=== PATIENT | female | born 1985 | race Caucasian/White ===

== ENCOUNTER 2017-09-27 11:07 | Emergency (ER) | payer BC ==
[~2017-09-27] VITALS: Ht 162.6 cm; Wt 65.0 kg
[2017-09-27 11:12] VITALS: BP 143/69; PULSE 97; RESP 16; TEMP 97.9; O2SAT 96
[2017-09-27] MEDS ORDERED: ORPHENADRINE INJ 60 MG/2 ML AMP IM ONE (12:00)
[2017-09-27] MEDS ORDERED: predniSONE 50 MG TAB PO ONE (12:00)
[2017-09-27] MEDS ORDERED: KETOROLAC TROMETHAMINE 60 MG/2 ML (IM) VIAL IM ONE (12:00)
--- NOTE | 2017-09-27 12:09 | PD ---
HPI Chief Complaint: Musculoskeletal Complaint Time Seen by Provider: 11:57 Travel History International Travel<30 days: No Contact w/Intl Traveler<30days: No Traveled to known affect area: No History of Present Illness HPI 32-year-old female presents to emergency department complaining of severe sciatic pain to the left leg. States that the pain started in her neck but has since traveled down to her lower back and hip region. Patient describes her pain as a constant dull pain that radiates down her leg to her foot. Patient has taken hydrocodone, ibuprofen, Flexeril without significant relief. Denies fever, chills, recent trauma, loss of bowel or bladder function, saddle anesthesia, personal history of cancer. Patient's concerned that she has had sciatica pain before but states that this different and more intense. 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 Dilation and Curettage (D&C): Yes Past Surgical History Genitourinary Surgery: Yes (KIDNEY STENTS) Social History Alcohol Use: No Tobacco Use: No Substance Use: No Allergies-Medications (Allergen,Severity, Reaction): Coded Allergies: No Known Allergies (Unverified , 09/27/17) Reported Meds & Prescriptions Reported Meds & Active Scripts Active Medrol Dosepak (Methylprednisolone) 4 Mg Dspk 4 Mg PO DIRECTED Per Pharmacist direction Review of Systems Except as stated in HPI: all other systems reviewed are Neg Physical Exam Narrative GENERAL: Well-developed well-nourished in mild distress SKIN: Focused skin assessment warm/dry. No ecchymosis. HEAD: Atraumatic. Normocephalic. EYES: Pupils equal and round. No scleral icterus. No injection or drainage. ENT: No nasal bleeding or discharge. Mucous membranes pink and moist. NECK: Trachea midline. No JVD. No midline tenderness CARDIOVASCULAR: Regular rate and rhythm. No murmur appreciated. RESPIRATORY: No accessory muscle use. Clear to auscultation. Breath sounds equal bilaterally. MUSCULOSKELETAL: No obvious deformities. No clubbing. No cyanosis. No edema. Significant paraspinous muscle spasms lower lumbar region. Mild TTP to bilateral gluteus BACK: No CVA tenderness. No rash. Mild point tenderness on palpation of the lower lumber/ sacrum spine. NEUROLOGICAL: Awake and alert. No obvious cranial nerve deficits. Motor grossly within normal limits. Normal speech. PSYCHIATRIC: Appropriate mood and affect; insight and judgment normal. Data Data Last Documented VS Vital Signs Date Time Temp Pulse Resp B/P (MAP) Pulse Ox O2 Delivery O2 Flow Rate FiO2 09/27/17 11:12 97.9 97 16 143/69 (93) 96 Orders Orders Spine, Lumbar Comp W/Obliq (09/27/17 ) Prednisone (Deltasone) (09/27/17 12:00) Ketorolac Inj (Toradol Inj) (09/27/17 12:00) Orphenadrine Inj (Norflex Inj) (09/27/17 12:00) Ed Discharge Order (09/27/17 13:15) MDM Medical Decision Making Medical Screen Exam Complete: Yes Emergency Medical Condition: Yes Differential Diagnosis Muscle spasms, sciatica, lumbar radiculopathy Narrative Course 32-year-old female presents to emergency department complaining of severe sciatic pain to the left leg. States that the pain started in her neck but has since traveled down to her lower back and hip region. Patient describes her pain as a constant dull pain that radiates down her leg to her foot. Patient has taken hydrocodone, ibuprofen, Flexeril without significant relief. Denies fever, chills, recent trauma, loss of bowel or bladder function, saddle anesthesia, personal history of cancer. Patient's concerned that she has had sciatica pain before but states that this different and more intense. Vital signs stable. Physical exam findings consistent with muscle spasms and sciatica. CVA tenderness negative. Abdominal exam unremarkable. Last Impressions Lumbar Spine X-Ray 09/27/17 0000 Signed Impressions: Service Date/Time: Wednesday, September 27, 2017 12:17 - CONCLUSION: 1. Negative lumbar spine series. 2. Suspected 7 mm right renal stone. Jakub Horner MD Copy of x-ray report given to the patient. Patient is a history of kidney stones. There is no abdominal discomfort or complaints today. History and physical consistent with sciatica. Because patient has multiple medications for her pain, prednisone prescribed for radicular pain. Patient reassured. Advised patient to follow up with her primary care physician within 2-3 days. Return for worsening or persistent symptoms. Diagnosis Primary Impression: Sciatica Qualified Codes: M54.32 - Sciatica, left side Referrals: Orthopedist Additional Instructions: Perform light stretches of the lower back and legs, and alternate heat and ice packs. If you develop increased pain, weakness, fever, chills, or bowel or bladder issues, return to the ED for further treatment and evaluation. Follow up with your primary care physician in 2-3 days. Scripts Methylprednisolone Dosepak (Medrol Dosepak) 4 Mg Dspk 4 MG PO DIRECTED, #1 DSPK 0 Refills Per Pharmacist direction Prov: Christina Pike 09/27/17 Disposition: 01 DISCHARGE HOME Condition: Stable Christina Pike Sep 27, 2017 12:09
--- NOTE | 2017-09-27 13:09 | RADRPT ---
EXAM DATE/TIME: 09/27/2017 12:17 [facility] COMPARISON: No previous studies available for comparison. INDICATIONS : Low back pain , radiating pain down left leg, no known injury MEDICAL HISTORY : None. SURGICAL HISTORY : None. ENCOUNTER: Initial ACUITY: 1 day PAIN SCORE: 8/10 LOCATION: Bilateral low back FINDINGS: There are five non-rib bearing vertebral bodies. The vertebral bodies are in normal alignment withou t evidence of subluxation or scoliosis. The disc spaces are maintained. The posterior elements are intact without evidence of spondylolysis. The pedicles are intact. Bony mineralization is normal. No fracture is identified. There is an IUD in place. There is a 0.7 cm calcification in the right upp er quadrant likely related to a right renal stone. CONCLUSION: 1. Negative lumbar spine series. 2. Suspected 7 mm right renal stone. Jakub Horner MD on September 27, 2017 at 13:05 Board Certified Radiologist. This report was verified electronically.
[2017-09-27] MEDS ORDERED: MEDR4PAK PO (13:14)
== END 2017-09-27 13:28 | disposition home or self-care (01) ==
LOC: PHEFT 11:07
DX: M54.32 Sciatica, left side (principal); Z87.442 Personal history of urinary calculi; Z79.899 Other long term (current) drug therapy
CPT/HCPCS: 72110; 96372; 99284; J1885; J2360; J7512